=== PATIENT | male | born 1955 | race Caucasian/White ===

== ENCOUNTER 2023-11-23 07:15 | Outpatient (RCR) | payer OTHER, MEDICARE, SELFPAY ==
[2023-08-22 12:00] VITALS: PULSE 64
== END 2023-11-23 08:29 | disposition home or self-care (01) ==
LOC: ANHCPREHAB 07:15
PROVIDERS: PCP Internal Medicine Cardiovascular Disease; Visit Provider Internal Medicine Cardiovascular Disease
DX: Z95.1 Presence of aortocoronary bypass graft (principal)
CPT/HCPCS: 93798